=== PATIENT | male | born 1985 | race Caucasian/White ===

== ENCOUNTER 2020-10-17 22:41 | Emergency (ER) | payer BC, SELFPAY ==
[2020-10-17 23:23] VITALS: BP 202/94; PULSE 98; RESP 18; TEMP 37.2; O2SAT 96; BMI 49.3
[2020-10-17 23:59] LABS: COVID-19 Test Negative (Negative)
[2020-10-18] VITALS: BP 202/94; PULSE 98; RESP 18; TEMP 37.2; O2SAT 100; O2SAT 96
--- NOTE | 2020-10-18 00:31 | ED_ITS ---
HPI - URI/Sore Throat General Chief Complaint: Upper Respiratory Symptoms Stated Complaint: sore throat Time Seen by Provider: 10/18/20 00:31 Source: patient Mode of arrival: ambulatory Limitations: no limitations History of Present Illness HPI Narrative: Patient complaining of sore throat since early today painful to swallow no fever or chills no shortness of breath no cough Related Data Previous Rx's Medication Instructions Recorded amoxicillin-pot clavulanate 1 tab PO BID #20 tab 10/18/20 [Augmentin] Allergies Allergy/AdvReac Type Severity Reaction Status Date / Time No Known Allergies Allergy Verified 10/17/20 23:26 Review of Systems Review of Systems: Yes all other systems are reviewed and are negative [facility] Past Medical History Medical History HTN (hypertension) Social History Social History Advance Directives: No Advance Directives Information Provided: No Physical Exam Vital Signs: Vital Signs: Last Vital Signs Temp 98.9 F 10/17/20 23:23 Pulse 98 10/17/20 23:23 Resp 18 10/17/20 23:23 BP 202/94 H 10/17/20 23:23 Pulse Ox 96 10/17/20 23:23 Body Mass Index 49.3 Appearance: Alert. Oriented X3. No acute distress. Eyes: PERRLA, No Nystagmus ENT: Pharynx slight erythema, tonsils normal no exudate, Oral Mucosa moist Neck: Normal inspection. Neck supple. CVS: Normal heart rate and rhythm. Pulses normal. Respiratory: No respiratory distress. Equal air entry bilateral, no wheezing/rales/rhonchi Abdomen: Soft and nontender. Bowel sounds are present, Skin: Skin warm and dry. Normal skin color. Normal skin turgor. Extremities: No lower extremity edema. No calf tenderness Neuro: Oriented X 3. No motor deficit. No sensory deficit.No cerebellar signs , MDM - URI/Sore Throat Differential Diagnosis Differential diagnosis: Likely upper respiratory infection Lab Data Attestation: I reviewed the patient's lab results. Labs: Lab Results 10/17/20 10/18/20 Range/Units 23:35 01:04 COVID-19 (YENY) Negative (Negative) COVID-19 Clin Com See Note S. pyogenes GrpA SAUL Negative (Negative) Discharge Plan Discharge Clinical Impression: Pharyngitis Qualifiers: Pharyngitis/tonsillitis etiology: streptococcus Qualified Code(s): J02.0 - Streptococcal pharyngitis Patient Disposition: Home, Self-Care Instructions: Pharyngitis (ED) Additional Instructions: Drink plenty of fluids. Take antibiotic as prescribed Prescriptions: New amoxicillin-pot clavulanate [Augmentin] 875-125 mg tablet 1 tab PO BID Qty: 20 RF: 0
[2020-10-18 01:16] LABS: Strep A Nucleic Acid Negative (Negative)
[2020-10-18] MEDS: Amoxicillin/Potassium Clav 875 MG TABLET PO (01:32)
== END 2020-10-18 01:32 | disposition home or self-care (01) ==
PROVIDERS: Emergency Medicine; Emergency Provider Internal Medicine
DX: J02.0 Streptococcal pharyngitis (principal); Z20.822 Contact with and (suspected) exposure to COVID-19; Z79.899 Other long term (current) drug therapy
CPT/HCPCS: 36415; 87635; 87651; 99285

== ENCOUNTER 2025-05-06 01:45 | Emergency (ER) | payer OTHER, SELFPAY ==
--- OUTSIDE RECORDS SUMMARY | 2025-05-04 16:55 | XMS_ITS | Encounter Summary ---
Author Organization [facility] Address [address] [place] [address] Care Team Providers Care Senior Stereo Compiler Team Lead Name Role Phone Pcp, No Primary Care Provider Unavailabl e Reason for Referral * Emergency Services (Urgent) - Authorized Specialty Diagnoses / Procedures Referred By Henna miller Referred To Contact Diagnoses Right wrist pain Swelling of right wrist Jane Donohue APRN [address] [place], [place] [id number] Phone: tel: fax: [place] [address] Referral ID Status Reason Start Date Expiration Date V isits Requested Visits Authorized [id number] Authorized Consult 05/05/2025 05/06/2026 1 1 * Orthopedic (Routine) - Authorized Specialty Diagnoses / Procedures Referred By Henna miller Referred To Contact Surgery, Orthopedic Diagnoses Right wrist pain Jane Donohue APRN [address] [place] [address] Phone: tel: fax: Sivakumar Cullen MD [address] [place] [id number] Phone: tel: fax: Referral ID Status Reason Start Date Expiration Date Visits Requested Visits Authorized [id number] Authorized Specialty Services Required 05/05/2025 05/06/2026 1 1 Reason for Visit * Reason Comments Wrist Pain No known injury. Rig ht wrist pain x 1 week. Both parents has a history of Gout. Encounter Details Date Type Department Care Team (Late st Contact Info) Description 05/04/2025 4:55 PM EST Office Visit [facility] [address] [id number] Femi Colbert MD [address] [place] [address] Jane Donohue APRN [address] [place] [address] Right wrist pain (Primary Dx); Swelling of right wrist Social History Tobacco Use Types Packs/Day Years Used Date Smoking Tobacco: Never Assessed Sex and Gender Information Value Date Recorded Sex Assigned at Not on file Legal Sex Male 1:54 PM EDT Gender Identity Not on file Sexual Orientation Not on file documented as of this encounter Last Filed Vital Signs Vital Sign Reading Time Taken Comments Blood Pressure 159/90 05/04/2025 5:23 PM EST Pulse 73 05/04/2025 4:59 PM EST Temperature 36.6 C (97.9 F) 05/04/2025 4:59 PM EST Respiratory Rate - - Oxygen Saturation 98% 05/04/2025 4:59 PM EST Inhaled Oxygen Concentration - - Weight 181 kg (398 lb) 05/04/2025 4:59 PM EST Height - - Body Mass Index - - documented in this encounter Patient Instructions * Patient Instructions* Jane Donohue APRN - 05/05/2025 8:09 AM EST Instructions: - Tylenol 1000mg every 6-8 hours as needed and Motrin 600mg every 6-8 hours for pain control. May take up to 4g of Tylenol and 3200mg of Motrin daily. - Take prednisone as directed in the morning with food. - RICE therapy (rest, ice, compression, elevation). - Begin low purine diet to prevent acute gouty flares. - Follow up with PCP for further management. - If any new or worsening symptoms develop, including chest pain, shortness of breath, fevers, chills, abdominal pain, nausea, or vomiting, go to urgent care or the ED for reevaluation. -Follow up with [facility] documented in this encounter Progress Notes * Jane Donohue APRN - 05/05/2025 8:06 AM EST Assessment & Plan Jered was seen today for wrist pain. Diagnoses and all orders for this visit: Right wrist pain - XR Wrist 3+ views-Right; Future - predniSONE (DELTASONE) 20 MG tablet; Take 2 tablets (40 mg total) by mouth daily. With food. - naproxen (NAPROSYN) 500 MG tablet; Take 1 tablet (500 mg total) by mouth 2 (two) times a day withmeals. Take with meals or food to reduce stomach upset. - Amb Referral to Orthopedic Surgery - Amb Referral to Emergency Medicine Swelling of right wrist - Amb Referral to Emergency Medicine Medical decision making: The diagnosis is right wrist pain based on history, physical exam, and lab/diagnostic testing. Patient with no known history of gout in the past however does have familial history of gout to the wrist. Has had increasing pain over the past 1 week along the joint. Initially along the radial aspect however has transitioned to the ulnar aspect. I did obtain an x-ray in clinic which reveals a possible bone fragment along the distal ulnar aspect which may reflect a displaced styloid process fracturehowever patient cannot recall any recent trauma. Cannot recall an injury in the past. The pt/familywas advised that some diseases present atypically and the pt was given explicit discharge instructio ns. Prescribed naproxen. Prescribed prednisone burst; patient counseled on side effects of this medication, including elevated blood pressure and blood glucose, as well as difficulty sleeping. There is no evidence of cellulitis at this time. Encouraged RICE therapy. Patient educated on low purine diet. Follow up with PCP. Reviewed with the patient/family any signs and symptoms that would warrant immediate medical attention including, but not limited to, fevers, chills, CP, SOB, erythema of the affected area, new/worsening edema of the affected area, warmth of the affected area, numbness, lossof sensation, or inability to move the affected area. Patient/family understand and agree with thisplan. I independently reviewed the 3+ right wrist x-ray which does show a bone fragment along the distal ulna Radiologist impression: There is a bone fragment of the fovea of the distal ulna which may reflect displaced eyelid process fracture of uncertain acuity Addendum 05/05/2025 at 8 AM: I did call and speak with patient. ID verified. Patient verbalized he cannot recall any recent trauma however tenderness is along the distal ulnar aspect. Patient will return to clinic in [place] today for splint and will follow-up with orthopedist. Is advised to continue prednisone and naproxen therapy. Will return to clinic at 4 PM today Addendum 1615 on 05/05/2025: Patient return to clinic in [place] location as patient does have notable ulnar styloid bone fragment noted on x-ray. When patient arrived in clinic of note there is increasing more swelling and difficulty performing range of motion. Swelling does extend to the hand, and right forearm.. There is no obvious signs of open wounds and patient cannot recall any recent scabs. At this time patient has taken 2 doses of prednisone along with naproxen as directed however symptoms are worsening. Given difficulty performing range of motion along with increasing swelling I am concerned for other etiologies including septic joint, cellulitis, compartment syndrome and other medical emergencies. At present I did advise patient to go to the emergency department for further evaluation and management. He did verbalize understanding. He would like to go to [facility] for furtherevaluation and management. No results found for this or any previous visit (from the past 2 hours). Subjective Subjective Patient ID: Jered Jeff is a 39 y.o. male. Jered Jeff is a 39-year-old male presents the urgent care setting for evaluation of his right wrist. Patient reports increased pain over the past 1 week. Has reported along the radial aspect however has gradually transition to the ulnar aspect. He denies any known trauma or injury. He denies any weakness. He reports his parents have a history of gout to the wrist as well. Does report increased red meat consumption. Denies any fevers or chills. Denies any known wounds. Wrist Pain The pain is present in the right wrist. Review of Systems Musculoskeletal: Positive for arthralgias and myalgias. Negative for gait problem, joint swelling, neck pain and neck stiffness. Problem List[1] History reviewed. No pertinent past medical history. History reviewed. No pertinent surgical history. Current Medications[2] Objective Objective Vitals: 05/04/25 1659 05/04/25 1723 BP: (!) 194/102 (!) 159/90 BP Location: Right arm Patient Position: Sitting Cuff Size: Large Pulse: 73 Temp: 97.9 ??F (36.6 ??C) SpO2: 98% Weight: (!) 181 kg (398 lb) Physical Exam Constitutional: General: He is not in acute distress. Appearance: Normal appearance. He is well-developed. He is not ill-appearing. HENT: Head: Normocephalic and atraumatic. Cardiovascular: Pulses: Radial pulses are 2+ on the right side. Pulmonary: Effort: Pulmonary effort is normal. No tachypnea, bradypnea or respiratory distress. Musculoskeletal: Right wrist: Swelling, tenderness and bony tenderness present. Decreased range of motion. Comments: Normal opposition of all fingers. There is mild discomfort along palpation of the ulnar aspect of right wrist. There is some localized swelling. No erythema. 2+ right radial is intact. Milddiscomfort with flexion and extension of the right wrist, able to perform range of motion Skin: General: Skin is warm. Capillary Refill: Capillary refill takes less than 2 seconds. Coloration: Skin is not jaundiced or pale. Findings: No lesion, rash or wound. Comments: Mild localized swelling noted to the right wrist Neurological: General: No focal deficit present. Mental Status: He is alert and oriented to person, place, and time. Psychiatric: Attention and Perception: Attention normal. Mood and Affect: Mood normal. Speech: Speech normal. Behavior: Behavior is cooperative. Cognition and Memory: Cognition normal. [1] There is no problem list on file for this patient. [2] Current Outpatient Medications: amLODIPine (NORVASC) 10 MG tablet, Take 10 mg by mouth., Disp: , Rfl: chlorthalidone (HYGROTON) 25 MG tablet, Take 25 mg by mouth., Disp: , Rfl: hydrALAZINE (APRESOLINE) 50 MG tablet, Take 50 mg by mouth., Disp: , Rfl: lisinopril (PRINIVIL,ZeSTRIL) 40 MG tablet, Take 40 mg by mouth., Disp: , Rfl: naproxen (NAPROSYN) 500 MG tablet, Take 1 tablet (500 mg total) by mouth 2 (two) times a day with meals. Take with meals or food to reduce stomach upset., Disp: 10 tablet, Rfl: 0 predniSONE (DELTASONE) 20 MG tablet, Take 2 tablets (40 mg total) by mouth daily. With food., Disp:10 tablet, Rfl: 0 documented in this encounter Miscellaneous Notes * Addendum Note - Jane Donohue APRN - 05/05/2025 4:22 PM ESTAddended by: JANE DONOHUE on: 05/05/2025 04:22 PM Modules accepted: Orders documented in this encounter Plan of Treatment Scheduled Referrals Name Type Priority Associated Diagnoses Order Schedule Amb Referral to Orthopedic Surgery Outpatient Referral Routine Right wrist pain Ordered: 05/05/2025 Amb Referral to Emergency Medicine Outpatient Referral Routine Right wrist pain Swelling Of Right Wrist Ordered: 05/05/2025 documented as of this encounter Results * XR Wrist 3+ views-Right (05/05/2025 7:18 AM EST) Anatomical Region Laterality Modality Wrist Right Computed Radiogr aphy 05/05/2025 7:18 AM EST Impressions 05/05/2025 7:20 AM EST THERE IS A BONE FRAGMENT of THE FOVEA OF THE DISTAL ULNA WHICH MAY REFLECT DISPLACED STYLOID PROCESS FRACTURE OF UNCERTAIN ACUITY. A Significant finding has been communicated to Radiology Patient Care for provider notification via the Ep[employer] Actionable Findings Application on 05/05/2025 7:19 AM, Message ID [id number]. Narrative 05/05/2025 7:20 AM EST EXAM: XR WRIST 3+ VIEWS-RIGHT on 05/04/2025 5:16 PM CLINICAL HISTORY: Atraumatic pain and swelling x 1 week. Tenderness to the ulnar aspect. COMPARISONS: None VIEWS: 4, Frontal, lateral, oblique, and scaphoid deviation views of the right wrist LIMITATIONS: None QUALITY: Diagnostic FINDINGS: BONE DENSITY: Normal. BONES: There is a bone fragment the fovea of the distal ulna. 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 ALIGNMENT: There is no dislocation. SOFT TISSUES: Unremarkable. OTHER FINDINGS: None. Procedure Note Александр Acevedo MD - 05/05/2025 EXAM: XR WRIST 3+ VIEWS-RIGHT on 05/04/2025 5:16 PM CLINICAL HISTORY: Atraumatic pain and swelling x 1 week. Tenderness to the ulnar aspect. COMPARISONS: None VIEWS: 4, Frontal, lateral, oblique, and scaphoid deviation views of theright wrist LIMITATIONS: None QUALITY: Diagnostic FINDINGS: BONE DENSITY: Normal. BONES: There is a bone fragment the fovea of the distal ulna. 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 ALIGNMENT: There is no dislocation. SOFT TISSUES: Unremarkable. OTHER FINDINGS: None. IMPRESSION: THERE IS A BONE FRAGMENT of THE FOVEA OF THE DISTAL ULNA WHICH MAY REFLECTDISPLACED STYLOID PROCESS FRACTURE OF UNCERTAIN ACUITY. A Significant finding has been communicated to Radiology Patient Care forprovider notification via the Ep[employer] Actionable FindingsApplication on 05/05/2025 7:19 AM, Message ID [id number]. Jane [facility]ER[facility]LES Final Result documented in this encounter Visit Diagnoses Diagnosis Right wrist pain- Primary Pain in joint, forearm Swelling of right wrist Right wrist pain Pain in joint, forearm documented in this encounter Care Teams Senior Stereo Compiler Team Lead Relationship Specialty Start Date End Date Pcp, No PCP - General General Medicine 05/04/25 documented as of this encounter
--- OUTSIDE RECORDS SUMMARY | 2025-05-04 17:16 | XMS_ITS | Encounter Summary ---
Author Organization [facility] Address [address] [place] [address] Care Team Providers Care Press Writer Name Role Phone Pcp, No Primary Care Provider Unavailabl e Encounter Details Date Type Department Care Team (Latest Contact Info) Description 05/04/2025 5:16 PM EST Hospital Encounter [facility] [address] [place] [address] Right wrist pain Social History Tobacco Use Types Packs/Day Years Used Date Smoking Tobacco: Never Assessed Sex and Gender Information Value Date Recorded Sex Assigned at Not on file Legal Sex Male 1:54 PM EDT Gender Identity Not on file Sexual Orientation Not on file documented as of this encounter Plan of Treatment Not on file documented as of this encounter Procedures Procedure Name Priority Date/Time Associated Diagnosis Comments XR WRIST 3+ VIEWS-RIGHT STAT 05/05/2025 7:18 AM EST Right wrist pain documented in this encounter Results * XR Wrist 3+ views-Right (05/05/2025 7:18 AM EST) Anatomical Region Laterality Modality Wrist Right Computed Radiogr aphy 05/05/2025 7:18 AM EST Impressions 05/05/2025 7:20 AM EST THERE IS A BONE FRAGMENT of THE FOVEA OF THE DISTAL ULNA WHICH MAY REFLECT DISPLACED STYLOID PROCESS FRACTURE OF UNCERTAIN ACUITY. A Significant finding has been communicated to Radiology Orthodontic Technician Assistant for provider notification via the [email or web address] Findings Application on 05/05/2025 7:19 AM, Message ID [id number]. Narrative 05/05/2025 7:20 AM EST EXAM: XR [...] Significant finding has been communicated to Radiology Orthodontic Technician Assistant forprovider notification via the [employer] Actionable FindingsApplication on 05/05/2025 7:19 AM, Message ID [id number]. Jane [facility]VIS [facility]ER[facility] Final Result documented in this encounter Visit Diagnoses Diagnosis Right wrist pain Pain in joint, forearm documented in this encounter Care Teams Press Writer Relationship Specialty Start Date End Date Pcp, No PCP - General General Medicine 05/04/25 documented as of this encounter
--- NOTE | ~2025-05-06 | XR_ITS ---
CLINICAL HISTORY: broken wrist per urgent care, pain, no injury 4 views right wrist Comparison: None provided Findings: There is no acute fracture. There appears to be an old healed fracture of the 5th metacarpal. There is an incidental small accessory ossicle in the medial wrist. Joint spaces and joint alignment are normal. Impression: No acute findings. This document has been electronically signed by: Oni Soto MD on 05/06/2025 02:37:35
[2025-05-06 01:54] VITALS: BP 173/94; PULSE 90; RESP 20; TEMP 36.7; O2SAT 95; BMI 52.5
--- NOTE | 2025-05-06 03:04 | ED.EXTPRO ---
HPI - Extremity Problem General Chief complaint: Extremity Injury, Upper Stated complaint: swollen hand Time Seen by Provider: 05/06/25 02:51 Source: patient Mode of arrival: ambulatory Limitations: no limitations History of Present Illness ED Provider: Dr. Vanessa Heart HPI Narrative: Patient comes to the emergency room were now complaining of right wrist pain that started about a week ago. Patient states that he has been treated for gout with naproxen and with prednisone. Patient states that he is still having wrist pain. Patient denies any trauma, denies any erythema, no fever chills, no significant swelling in the actual joint, only on the dorsum of the hand. Patient denies any trauma. Patient states that he was seen at urgent care a few days ago and was told that he may have a fracture. Patient states that he has had joint problems with his knee before, happened 2 months ago. Patient states that it seems to be exacerbated by eating red meats Related Data Previous Rx's ?Medication ?Instructions ?Recorded amoxicillin 875 mg-potassium 1 tab PO BID #20 tabs 10/18/20 clavulanate 125 mg tablet (Augmentin) colchicine 0.6 mg tablet 0.6 mg PO BID #7 tabs 05/06/25 oxycodone 5 mg tablet 5 mg PO BID PRN pain #8 tabs 05/06/25 Allergies Allergy/AdvReac Type Severity Reaction Status Date / Time No Known Allergies Allergy Verified 05/06/25 01:57 Review of Systems Review of Systems: Constitutional : No Weight loss, No Fever, No Chills, No Night Sweats, No Fatigue, No Malaise ENT/Mouth : No Hearing loss, No Ear Pain, No Nasal Congestion, No Sinus Pain, No Hoarseness, No sore throat, No Rhinorrhea, No Swallowing Difficulty Eyes: No Eye Pain, No Swelling, No Redness, No Foreign Body, No Discharge, No Vision Changes Cardiovascular : No Chest Pain, No SOB, No Dyspnea on Exertion, No Orthopnea, No Edema, No Palpitations Respiratory : No Cough, No Sputum, No Wheezing, No Smoke Exposure, No Dyspnea Gastrointestinal : No Nausea, No Vomiting, No Diarrhea, No Constipation, No abdominal Pain, No Hematochezia, No Melena Genitourinary : no irregular bleeding, No Dysuria, No Urinary Frequency, No Hematuria, No Urinary Incontinence, No Urgency, No Flank Pain, No Urinary Flow Changes, No Hesitancy Musculoskeletal : Complaining of right wrist pain for over a week with no trauma, No Myalgias, No Joint Swelling Skin : No Skin Lesions, No rash Neuro : No Weakness, No Numbness, No Paresthesias, No Loss of Consciousness, No Dizziness, No Headache Psych : No Anxiety/Panic, No Depression, No SI/HI/AH/VH, No Social Issues, Heme/Lymph: No Bruising, No Bleeding,No Lymphadenopathy Endocrine : No Polyuria, No Polydipsia, No Temperature Intolerance [facility] Past Medical History Medical History HTN (hypertension) Social History Social History Alcohol intake: never Physical Exam Exam: Exam: Appearance: Alert. Oriented X3. No acute distress. Eyes: Pupils equal, round and reactive to light. ENT: Pharynx normal. Neck: Normal inspection. Neck supple. No lymph nodes noted. No crepitus CVS: Normal heart rate and rhythm. Pulses normal. Normal S1 and S2 Respiratory: No respiratory distress. Breath sounds normal. No Wheezing. No rales Abdomen: Soft and nontender. No rigidity. No distention. Skin: Skin warm and dry. Normal skin color. Normal skin turgor. Extremities: No lower extremity edema. Patient's right wrist does not seem to be swollen, there is no erythema, no obvious effusion. The dorsum of the hands seems a bit swollen. However, patient does not have any pain over the dorsum of the hand. Patient states that it is sober a very specific spot on his wrist. Neuro: Oriented X 3. No motor deficit. No sensory deficit. Moving all extremities. No slurred speech. CN 2 through 12 grossly intact Psych: calm, cooperative, normal affect Vital Signs: Vital Signs: Last Vital Signs Temp 98.0 F 05/06/25 01:54 Pulse 90 05/06/25 01:54 Resp 20 05/06/25 01:54 BP 173/94 H 05/06/25 01:54 Pulse Ox 95 05/06/25 01:54 O2 Del Method Room Air 05/06/25 01:54 BMI result Body Mass Index 52.5 Medical Decision Making Medical Decision Making MDM Narrative: My interpretation of x-ray: No acute fracture, old healed fracture of the 5th metacarpal. Patient does not have any pain over the 5th metacarpal at all. I discussed with the patient to stop taking naproxen, continue taking prednisone, patient's medications were switched to colchicine and oxycodone PRN severe pain I discussed with the patient that we will give him a referral for Rheumatology, patient states that his job is very physical and is concerned that he might be having arthritis, which tends to run in his family Independent Interpretation I performed an independent interpretation of an: Plain X-Ray Radiology Impression Discussion of test interpretation with radiology: I have reviewed the radiologist's reading. Radiologist Impression: There is no acute fracture. There appears to be an old healed fracture of the 5th metacarpal. There is an incidental small accessory ossicle in the medial wrist. Joint spaces and joint alignment are normal. Impression: No acute findings. Discharge Plan Discharge Clinical Impression: Acute wrist pain Patient Disposition: Home, Self-Care Instructions: Arthralgia (ED) Additional Instructions: Please follow-up with your primary care physician tomorrow. If you have any worsening or new symptoms, please return to the emergency room or call 911 Prescriptions: New oxycodone 5 mg tablet 5 mg PO BID PRN (Reason: pain) Qty: 8 0RF Rx Instructions: Partial Fill upon patient request. colchicine 0.6 mg tablet 0.6 mg PO BID Qty: 7 0RF No Action amoxicillin-pot clavulanate [Augmentin] 875-125 mg tablet 1 tab PO BID Qty: 20 0RF Referrals: Kae Coulter MD [Physician, Rheumatology] Stand Alone Forms: Work/School Release Print Language: Frisian
[2025-05-06] MEDS: oxyCODONE HCl Immed Release 5 MG TABLET PO (03:11)
--- OUTSIDE RECORDS SUMMARY | 2025-05-06 03:12 | XMS_ITS ---
Author Name [facility] Organization Unknown History of Medication Use Medication Directions Dispensed Refills Start Date End Date Stat amLODIPine (NORVASC) 10 mg tablet Take 1 tablet (10 mg total) by mouth in the morning. 05/09/2022 active chlorthalidone (HYGROTON) 25 mg tablet Take 0.5 tablets (12.5 mg total) by mouth in the morning. 05/09/2022 active lisinopriL (PRINIVIL) 40 mg tablet Take 1 tablet (40 mg total) by mouth in the morning. 05/09/2022 active lisinopriL (PRINIVIL) 40 mg tablet TAKE 1 TABLET BY MOUTH EVERY DAY 01/13/2021 05/05/2022 active amLODIPine (NORVASC) 10 mg tablet TAKE 1 TABLET BY MOUTH EVERY DAY 01/11/2021 05/05/2022 active chlorthalidone (HYGROTON) 25 mg tablet TAKE 1/2 TABLET BY MOUTH EVERY DAY 01/11/2021 05/05/2022 aborted famotidine (PEPCID) tablet TAKE 1 TABLET (20 MG TOTAL) BY MOUTH 2 (TWO) TIMES A DAY NEEDED FOR HEARTBURN. (NOT COVERED) 02/05/2020 active Problems Problem Status Onset Date Problem Type Date of Resoluti on Source NAV (obstructive sleep apnea) active 2019-12-20 [facility]Act [facility] Transaminitis active 2018-05-24 ProblemAct [facility] Essential hypertension active 2018-05-10 ProblemAct [facility] Morbid obesity with BMI of 45.0-49.9, adult active 2018-05-10 ProblemAct [facility] Encounters Encounter Type Encounter Reason Primary Diagnosis Location Date Ambulatory Pain in right wrist Pain in right wrist [facility] 05/04/2025 Ambulatory Wrist Pain Wrist Pain [facility] 05/04/2025 Ambulatory [facility] [place] Care Team Organization Name Specialty Phone Email Start Date End Da te [facility] NO PCP Primary Care 05/05/2025 [facility] 05/04/2025 [facility] 05/04/2025 [facility] Primary Care 05/04/2025 [facility] Primary Care 05/04/2025
--- OUTSIDE RECORDS SUMMARY | 2025-05-06 03:12 | XMS_ITS | Clinical Summary ---
Author Organization [address] [facility] Address [address] [place] [address] Phone Care Team Providers Care Deaf Interpreter Name Role Phone Sandra Roy Primary Care Provider + Allergies No known active allergies Medications ergocalciferol (VITAMIN D-2) 1,250 mcg (50,000 unit) capsuleIndicatio ns:Vitamin D deficiency Take 1 capsule (50,000 Units total) by mouth 1 (one) time per week. 12 capsule 1 4 Active Additional Information Patient not taking.Reported on 05/04/2025 chlorthalidone (HYGROTON) 25 mg tabletIndication s:Primary hypertension Take 1 tablet (25 mg total) by mouth 1 (one) time each day. 90 tablet 1 5 Active amLODIPine (NORVASC) 10 mg tabletIndication s:Primary hypertension Take 1 tablet (10 mg total) by mouth 1 (one) time each day. 90 tablet 1 5 Active lisinopril (PRINIVIL,ZESTRI L) 40 mg tabletIndication s:Primary hypertension Take 1 tablet (40 mg total) by mouth 1 (one) time each day. 90 tablet 1 5 Active hydrALAZINE (APRESOLINE) 25 mg tabletIndication s:Primary hypertension Take 1 tablet (25 mg total) by mouth 3 (three) times a day. 270 tablet 1 5 Active Active Problems Problem Noted Date Diagnosed Date NAV (obstructive sleep apnea) 12/20/2019 Transaminitis 05/24/2018 Hypertension Overview (04/18/2024): DX:Hypertension Morbid obesity with BMI of 5 0.0-59.9, adult [place] [place] [facility] V28) Vitamin D deficiency Prediabetes Encounters Date Type Department Care Team Description 04/07/2025 2:30 PM EST Nutrition Bariatric Surgery - [address] [place] [address] Class 3 severe obesity with serious comorbidity and body mass index (BMI) of 50.0 to 59.9 in adult, unspecified obesity type ([facility] [place]24, [facility] V28) (Primary Dx) from Last 3 Months Immunizations Immunization Administration Dates Next Due Pfizer SARS-CoV-2 COVID-19, mRNA, LNP-S, preservative free 12/26/2020 Surgical History Surgery Date Site/Laterality Comments TIBIA FRACTURE SURGERY Left 2012 LEFT TIB/FIB FX S/P ORIF AT [facility] Medical History Medical History Date Comments Hypertension DX:Hypertension Ankle dislocation DX:Ankle dislo cation Morbid obesity with BMI of 5 0.0-59.9, adult ([facility] [place]24, [facility] V28) Vitamin D deficiency Prediabetes Social History Tobacco Use Types Packs/Day Years Used Date Smoking Tobacco: Never Smokeless Tobacco: Never Tobacco Cessation:Counseling Given: Not Answered Alcohol Use Standard Drinks/Week Comments Not Currently 0 (1 standard drink = 0.6 oz pur e alcohol) Housing Instability Answer Date Recorde d Are you worried that in the next 2 months you may not have stable housing? No 04/18/2024 Food Access & Nutrition Answer Date Rec orded Do you have access to a vari ety of food including fruits and vegetables? Yes 04/18/2024 Access to Healthcare Answer Date Record ed Within the last 3 months, lynsey guadalupe many times did you visit the emergency department for your medical care? 0 04/18/2024 Health Literacy Answer Date Recorded How often do you need to hav e someone help you when you read instructions, pamphlets, or other written material from your doctor or pharmacy? Never 04/18/2024 Caregiver: How often do you need to have someone help you when you read instructions, pamphlets, or other written material from your doctor or pharmacy? Not on file 04/18/2024 Financial Risk Answer Date Recorded How hard is it for you to pa y for the very basics like food, housing, medical care, and air conditioning / heating? Not very hard 04/18/2024 Transportation Answer Date Recorded Has the lack of transportati on kept you from meetings, work, or from getting things needed for daily living? No Has the lack of transportati on kept you from medical appointments or from getting medications? No 04/18/2024 Social Isolation Answer Date Recorded How often do you feel lonely or isolated from th ose around you? Never 04/18/2024 Food Risk Answer Date Recorded Within the past 12 months we worried whether our food would run out before we got money to buy more. Never true 04/18/2024 Within the past 12 months th e food we bought just didn't last and we didn't have money to get more. Never true 04/18/2024 Dependent Care Answer Date Recorded Do you need help finding or paying for care for your loved ones. For example, children's book author or elderly care for an older adult? No 04/18/2024 Education Answer Date Recorded Do you think completing more education or training, like finishing a GED, going to college, or learning a trade, would be helpful for you? No 04/18/2024 Employment and Income Answer Date Recor ded During the last four weeks, have you been actively looking for work? No 04/18/2024 Living Situation Answer Date Recorded What is your living situation? 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 Not on melina e Not on file Obstetrics History Last Filed Vital Signs Vital Sign Reading Time Taken Comments Blood Pressure 167/85 05/04/2025 4:00 PM EST Pulse 67 05/04/2025 4:00 PM EST Temperature 36.4 C (97.6 F) 05/04/2025 4:00 PM EST Respiratory Rate 20 05/04/2025 4:00 PM EST Oxygen Saturation 95% 05/04/2025 4:00 PM EST Inhaled Oxygen Concentration - - Weight 182 kg (401 lb) 04/07/2025 2:29 PM EST Height 185.4 cm (6' 1 ) 01/02/2025 2:56 PM EDT Body Mass Index 52.91 01/02/2025 2:56 PM EDT Plan of Treatment Upcoming Encounters Date Type Department Care Team (Late st Contact Info) Description 05/15/2025 11:00 AM EST Office Visit Internal Medicine - [place] [facility] [address] [place] [phone] Sandra Roy PA [address] [place] [address] 07/01/2025 1:30 PM EST Office Visit Bariatric Surgery - [place] [facility] [address] [place] [address] Ravi Woods MD [address] [place] [address] 07/09/2025 3:00 PM EST Nutrition Bariatric Surgery - [place] [facility] [address] [place] [address] Mague Cast, DICK [address] [address] Health Maintenance Due Date Last Done Comments Hepatitis B Vaccines (1 of 3 - 19+ 3-dose series) 2004 HPV Vaccines (1 - 3-dose SCD M series) 2012 HIV Screening 05/07/2022 DTaP,Tdap,and Td Vaccines (2 - Td or Tdap) 05/10/2022 05/10/2012 COVID-19 Vaccine (2 - 2024-2 6 season) 2025 12/26/2020 Influenza Vaccine (#1) 2025 05/10/2018 Social Influencers of Health Screening 04/18/2025 04/18/2024 Hypertension/CHF/CAD Annual BMP Blood Test 04/19/2025 04/19/2024, 03/25/2022, 03/25/2022 Cholesterol Screening (Lipid Panel) 04/19/2029 04/19/2024 RSV Immunization Adult Patients (1 - 1-dose 75+ series) 2060 Depression Screening Completed 09/26/2024 Hepatitis C Screening Completed 02/07/2025 HIB Vaccines Aged Out No longer eligi ble based on patient's age to complete this topic Hepatitis A Vaccines Aged Out No long er eligible based on patient's age to complete this topic IPV Vaccines Aged Out No longer eligi ble based on patient's age to complete this topic MMR Vaccines Aged Out No longer eligi ble based on patient's age to complete this topic Meningococcal ACWY Vaccine Aged Out N o longer eligible based on patient's age to complete this topic Meningococcal B Vaccine Aged Out No l onger eligible based on patient's age to complete this topic Pneumococcal Vaccine: Pediatrics (0 to 5 Years) and At-Risk Patients (6 to 49 Years) Aged Out No longer eligible b ased on patient's age to complete this topic RSV Immunization Patients Under 20 months Aged Out No longer eligible b ased on patient's age to complete this topic Varicella Vaccines Aged Out No longer eligible based on patient's age to complete this topic Procedures Procedure Name Priority Date/Time Associated Diagnosis Comments URINALYSIS WITH REFLEX MICROSCOPIC Routine 02/07/2025 7:49 AM EDT Other proteinuria PROTEIN AND CREATININE WITH RATIO, URINE Routine 02/07/2025 7:49 AM EDT Other proteinuria URINALYSIS WITH REFLEX MICROSCOPIC Routine 02/07/2025 7:49 AM EDT Other proteinuria C4 COMPLEMENT Routine 02/07/2025 7:49 AM EDT Other proteinuria C3 COMPLEMENT Routine 02/07/2025 7:49 AM EDT Other proteinuria HEPATITIS B SURFACE ANTIGEN WITH CONFIRMATION Routine 02/07/2025 7:49 AM EDT Proteinuria HEPATITIS C ANTIBODY Routine 02/07/2025 7:49 AM EDT Proteinuria COMPREHENSIVE METABOLIC PANEL Routine 04/19/2024 7:41 AM EST Primary hypertension LIPID PANEL WITH REFLEX TO DIRECT LDL Routine 04/19/2024 7:41 AM EST Health care maintenance from Last 3 Months or Most Recently Relevant to Health Maintenance Results * Hepatitis C antibody (02/07/2025 7:49 AM EDT) [facility] Hepatitis C Antibody Negative Negative LAB CHEMISTRY METHOD 02/07/2025 11:58 AM EDT [facility] Blood Venous blood specimen / Unknown Venipuncture / Unknown 02/07/2025 7:49 AM EDT 02/07/2025 7:49 AM EDT us Terrance Tejada MD LAB BLOOD ORDERABLES Final Res ult [facility] [address] [place] [address], [place] [phone] * Urinalysis with reflex microscopic (02/07/2025 7:49 AM EDT) [facility] Specific [place] Urine 1.020 1.003 - 1.030 LAB URINALYSIS - AUTOMATED METHOD 02/07/2025 10:17 AM T [facility] pH, Urine 6.0 5.0 - 8.0 pH LAB URINALYSIS - AUTOMATED METHOD 02/07/2025 10:17 AM T [facility] Leukocytes, Urine Negative Negative LAB URINALYSIS - AUTOMATED METHOD 02/07/2025 10:17 AM T [facility] Nitrite, Urine Negative Negative LAB URINALYSIS - AUTOMATED METHOD 02/07/2025 10:17 AM [facility] Protein, Urine Negative <=Trace mg/dL LAB URINALYSIS - AUTOMATED METHOD 02/07/2025 10:17 AM [facility] Glucose, Urine Negative Negative mg/dL LAB URINALYSIS - AUTOMATED METHOD 02/07/2025 10:17 AM EDT [facility] Ketones, Urine Negative Negative mg/dL LAB URINALYSIS - AUTOMATED METHOD 02/07/2025 10:17 AM EDT [facility] Urobilinogen, Urine 1.0 0.2 - 1.0 mg/dL LAB URINALYSIS - AUTOMATED METHOD 02/07/2025 10:17 AM EDT [facility] Bilirubin, Urine Negative Negative LAB URINALYSIS - AUTOMATED METHOD 02/07/2025 10:17 AM EDT [facility] Blood, Urine Negative Negative LAB URINALYSIS - AUTOMATED METHOD 02/07/2025 10:17 AM T [facility] Urine Urine specimen obtained by clean catch procedure / Unknown Non-blood Collection / Unknown 02/07/2025 7:49 AM EDT 02/07/2025 7:49 AM EDT us Terrance Tejada MD LAB URINE ORDERABLES Final Res ult [facility] [address] [place] [address], * Hepatitis B surface antigen with reflex to confirmation (02/07/2025 7:49 AM EDT) Hepatitis B Surface Ag Negative Negative LAB CHEMISTRY METHOD 02/07/2025 11:29 AM EDT [facility] Blood Venous blood specimen / Unknown Venipuncture / Unknown 02/07/2025 7:49 AM EDT 02/07/2025 7:49 AM EDT Narrative [facility] - 02/07/2025 11:29 AM EDT Over the counter supplements containing high doses of biotin may interfere with this assay. If interference is suspected, patients shoud be retested after refraining from biotin supplements for 72 hours. us Terrance Tejada MD LAB BLOOD ORDERABLES Final Res ult Performing Organization Address City/[facility]/ZIP Co de Phone Number [facility] [address] [place] [address], [place] [phone] * Protein and creatinine with ratio, urine (02/07/2025 7:49 AM EDT) Protein, Urine 12 mg/dL LAB CHEMISTRY METHOD 02/07/2025 11:05 AM EDT [facility] Prot/Creat, Ur 0.13 <=0.20 mg/mg creat LAB CHEMISTRY METHOD 02/07/2025 11:05 AM EDT [facility] Creatinine, Urine 90.0 mg/dL LAB CHEMISTRY METHOD 02/07/2025 11:05 AM EDT [facility] Urine Urine specimen obtained by clean catch procedure / Unknown Non-blood Collection / Unknown 02/07/2025 7:49 AM EDT 02/07/2025 7:49 AM EDT Terrance Tejada MD LAB URINE ORDERABLES Final Res ult Performing Organization Address [facility]/ZIP Co de Phone Number [facility] [address] [place] [address], [place] [phone] * C3 complement (02/07/2025 7:49 AM EDT) C3 Complement 137 88 - 201 mg/dL LAB CHEMISTRY METHOD 02/07/2025 10:36 AM EDT [facility] Blood Venous blood specimen / Unknown Venipuncture / Unknown 02/07/2025 7:49 AM EDT 02/07/2025 7:49 AM EDT Terrance Tejada MD LAB BLOOD ORDERABLES Final Res ult [facility] [address] [place] [address], [place] [phone] * C4 complement (02/07/2025 7:49 AM EDT) C4 Complement 23 16 - 47 mg/dL LAB CHEMISTRY METHOD 02/07/2025 10:36 AM EDT [facility] Blood Venous blood specimen / Unknown Venipuncture / Unknown 02/07/2025 7:49 AM EDT 02/07/2025 7:49 AM EDT Terrance Tejada MD LAB BLOOD ORDERABLES Final Res ult [facility] [address] [place] [address], [place] [phone] * Lipid panel with reflex to direct LDL (04/19/2024 7:41 AM EST) Cholesterol 161 0 - 200 mg/dL LAB CHEMISTRY METHOD 04/19/2024 10:36 AM [facility] Triglycerides 87 0 - 150 mg/dL LAB CHEMISTRY METHOD 04/19/2024 10:36 AM EST [facility] HDL 54 >=40 mg/dL LAB CHEMISTRY METHOD 04/19/2024 10:36 AM [facility] LDL Calculated 90 0 - 100 mg/dL LAB CHEMISTRY METHOD 04/19/2024 10:36 AM [facility] VLDL Cholesterol Elijah 17.4 mg/dL LAB CHEMISTRY METHOD 04/19/2024 10:36 AM EST [facility] Non HDL Chol. (LDL+VLDL) 107 <145 mg/dL LAB CHEMISTRY METHOD 04/19/2024 10:36 AM [facility] Chol/HDL Ratio 3.0 0.0 - 4.4 LAB CHEMISTRY METHOD 04/19/2024 10:36 AM [facility] Blood Venous blood specimen / Unknown Venipuncture / Unknown 04/19/2024 7:41 AM EST 04/19/2024 7:41 AM EST Sandra WEBSTER LAB BLOOD ORDERABLES Fin al Result [facility] [address] [place] [address], [place] [phone] * (ABNORMAL) Comprehensive metabolic panel (04/19/2024 7:41 AM EST) Sodium 141 133 - 145 mmol/L LAB CHEMISTRY METHOD 04/19/2024 11:01 AM [facility] Potassium 3.7 3.5 - 5.5 mmol/L LAB CHEMISTRY METHOD 04/19/2024 11:01 AM [facility] Chloride 108 96 - 110 mmol/L LAB CHEMISTRY METHOD 04/19/2024 11:01 AM [facility] CO2 25 21 - 32 mmol/L LAB CHEMISTRY METHOD 04/19/2024 11:01 AM [facility] Anion Gap 8 3 - 11 LAB CHEMISTRY METHOD 04/19/2024 11:01 AM [facility] Glucose 106(H) 70 - 100 mg/dL LAB CHEMISTRY METHOD 04/19/2024 11:01 AM [facility] BUN 24 5 - 25 mg/dL LAB CHEMISTRY METHOD 04/19/2024 11:01 AM [facility] Creatinine 0.87 0.70 - 1.30 mg/dL LAB CHEMISTRY METHOD 04/19/2024 11:01 AM [facility] eGFR 113 >=60 mL/min/1. 73m2 LAB CHEMISTRY METHOD 04/19/2024 11:01 AM [facility] Comment:Calculation based on the Chronic Kidney Disease Epidemiology Collaboration (CKD-EPI) equation refit without adjustment for race. BUN/Creatinine Ratio 27.6 LAB CHEMISTRY METHOD 04/19/2024 11:01 AM [facility] Calcium 9.7 8.5 - 10.5 mg/dL LAB CHEMISTRY METHOD 04/19/2024 11:01 AM [facility] AST (SGOT) 30 10 - 42 unit/L LAB CHEMISTRY METHOD 04/19/2024 11:01 AM [facility] ALT (SGPT) 61(H) 10 - 60 unit/L LAB CHEMISTRY METHOD 04/19/2024 11:01 AM [facility] Alkaline Phosphatase 144(H) 42 - 121 unit/L LAB CHEMISTRY METHOD 04/19/2024 11:01 AM [facility] Total Protein 7.7 6.0 - 8.0 g/dL LAB CHEMISTRY METHOD 04/19/2024 11:01 AM [facility] Albumin 4.2 3.2 - 5.0 g/dL LAB CHEMISTRY METHOD 04/19/2024 11:01 AM [facility] Total Bilirubin 0.8 0.0 - 1.4 mg/dL LAB CHEMISTRY METHOD 04/19/2024 11:01 AM [facility] Blood Venous blood specimen / Unknown Venipuncture / Unknown 04/19/2024 7:41 AM EST 04/19/2024 7:41 AM EST Sandra WEBSTER LAB BLOOD ORDERABLES Fin al Result [facility] [address] [place] [address], from Last 3 Months or Most Recently Relevant to Health Maintenance Insurance [facility] Care Teams Deaf Interpreter Relationship Specialty Start Date End Date Sandra Roy PA [address] [place] [address] PCP - General 01/26/24
--- OUTSIDE RECORDS SUMMARY | 2025-05-06 03:12 | XMS_ITS | Clinical Summary ---
Author Organization [facility] Address [address] [place] [address] Care Team Providers Care Metal Dresser Name Role Phone Unavailable Primary Care Provider Unavailabl e Allergies No known active allergies Medications Medication Sig Dispensed Refills Start Date End Date Status lisinopril-hydrochlor othiazide (PRINZIDE,ZESTORETIC) tablet 20-25 mg Take 1 tablet by mouth daily. 0 05/05/2015 Active promethazine (PHENERGAN) tablet 25 mg Take 1 tablet (25 mg total) by mouth every 6 (six) hours as needed for nausea. 30 tablet 0 06/02/2015 Active Active Problems No known active problems Social History Tobacco Use Types Packs/Day Years Used Date Smoking Tobacco: Never Alcohol Use Standard Drinks/Week Comments No 0 (1 standard drink = 0.6 oz pur e alcohol) Sex and Gender Information Value Date Recorded Sex Assigned at Male 03/25/2022 4:42 AM EDT Gender Identity Not on file Sexual Orientation Not on file Job Start Date Occupation Industry Not on file Not on file Not on file Last Filed Vital Signs Vital Sign Reading Time Taken Comments Blood Pressure 174/106 03/25/2022 3:09 AM EDT gale n Pulse 72 03/25/2022 3:09 AM EDT Temperature 36.7 C (98 F) 03/25/2022 3:09 AM EDT Respiratory Rate 20 03/25/2022 3:09 AM EDT Oxygen Saturation 100% 03/25/2022 3:09 AM EDT Inhaled Oxygen Concentration - - Weight 134.3 kg (296 lb) 05/15/2015 12:49 PM EST Height 185.4 cm (6' 1 ) 05/15/2015 12:49 PM EST Body Mass Index 39.05 05/15/2015 12:49 PM EST Plan of Treatment Health Maintenance Due Date Last Done Comments Hepatitis B Vaccines (1 of 3 - 3-dose series) 1985 Hepatitis C Screening 1985 Depression Screening 1997 Preventative Health Evaluation 2003 DTap / Tdap / Td (2 - Td or Tdap) 05/10/2022 012 COVID-19 Vaccine (2 - 2024- 6 season) 2025 12/26/2020 Influenza Vaccine (#1) 2025 05/10/2018 Pneumococcal Vaccine Aged Out No long er eligible based on patient's age to complete this topic RSV Ped < 20 months Aged Out No longe r eligible based on patient's age to complete this topic
--- OUTSIDE RECORDS SUMMARY | 2025-05-06 03:12 | XMS_ITS | Clinical Summary ---
Author Organization [facility] Address [address] [place] [address] Care Team Providers Care County Administrator Name Role Phone Pcp, No Primary Care Provider Unavailabl e Allergies No known active allergies Medications lisinopril (PRINIVIL,ZeSTR IL) 40 MG tablet Take 40 mg by mouth. 02/14/2025 Active hydrALAZINE (APRESOLINE) 50 MG tablet Take 50 mg by mouth. 02/28/2025 Active chlorthalidone (HYGROTON) 25 MG tablet Take 25 mg by mouth. 02/14/2025 Active amLODIPine (NORVASC) 10 MG tablet Take 10 mg by mouth. 02/14/2025 Active predniSONE (DELTASONE) 20 MG tabletIndicatio ns:Right wrist pain Take 2 tablets (40 mg total) by mouth daily. With food. 10 tablet 05/04/2025 5 Active naproxen (NAPROSYN) 500 MG tabletIndicatio ns:Right wrist pain Take 1 tablet (500 mg total) by mouth 2 (two) times a day with meals. Take with meals or food to reduce stomach upset. 10 tablet 05/04/2025 5 Active Active Problems No known active problems Encounters Date Type Department Care Team Description 05/04/2025 5:16 PM EST Hospital Encounter [facility] [address] [place] [phone] Right wrist pain 05/04/2025 4:55 PM EST Office Visit [facility] [address] [phone] Femi Colbert MD Duncan, Kiersten B, APRN Right wrist pain (Primary Dx); Swelling of right wrist from Last 3 Months Social History Tobacco Use Types Packs/Day Years Used Date Smoking Tobacco: Never Assessed Sex and Gender Information Value Date Recorded Sex Assigned at Not on file Legal Sex Male 1:54 PM EDT Gender Identity Not on file Sexual Orientation Not on file Last Filed Vital Signs [...] - - Body Mass Index - - Plan of Treatment Health Maintenance Due Date Last Done Comments Hepatitis C Virus Screening 1985 HIV Screening 1998 DTaP/Tdap/Td Vaccines (1 - Tdap) 2004 Hepatitis B Vaccines (1 of 3 - 19+ 3-dose series) 2004 Influenza Vaccine 01/03/2025 05/10/2018 COVID-19 Vaccine (2 - 2024-2 6 season) 2025 12/26/2020 HPV Vaccines (No Doses Required) Completed Pneumococcal Vaccine: Pediat michael (0-5 Years) and At-Risk Patients (6 to 49 Years) Aged Out No longer eligible b ased on patient's age to complete this topic Procedures Procedure Name Priority Date/Time Associated Diagnosis Comments XR WRIST 3+ VIEWS-RIGHT STAT 05/05/2025 7:18 AM EST Right wrist pain from Last 3 Months Results * XR Wrist 3+ views-Right (05/05/2025 7:18 AM EST) Anatomical Region Laterality Modality Wrist Right Computed Radiogr aphy 05/05/2025 7:18 AM EST Impressions 05/05/2025 7:20 AM EST THERE IS A BONE FRAGMENT of THE FOVEA OF THE DISTAL ULNA WHICH MAY REFLECT DISPLACED STYLOID PROCESS FRACTURE OF UNCERTAIN ACUITY. A Significant finding has been communicated to Radiology Special Officer Automat for provider notification via the [employer] Application on 05/05/2025 7:19 AM, Message ID [id number]. Narrative 05/05/2025 7:20 AM EST EXAM: XR [...] Significant finding has been communicated to Radiology Special Officer Automat forprovider notification via the [employer] Actionable FindingsApplication on 05/05/2025 7:19 AM, Message ID [id number]. Jane Donohue APRN [facility] DIAGNOSTIC IMAGING OR DERABLES Final Result from Last 3 Months Insurance Care Teams County Administrator Relationship Specialty Start Date End Date Pcp, No PCP - General General Medicine 05/04/25
--- OUTSIDE RECORDS SUMMARY | 2025-05-06 03:12 | XMS_ITS | Clinical Summary ---
Author Organization [facility] Address [address] [place] [address] Phone Care Team Providers Care Business Partner Name Role Phone Sandra Roy PA-C Primary Care Provider + Allergies No known active allergies Medications amLODIPine (NORVASC) 10 MG tablet Take 10 mg by mouth in the morning. 05/09/2022 Active chlorthalidone 25 MG tablet Take 25 mg by mouth in the morning. 05/09/2022 Active lisinopril 40 MG tablet Take 40 mg by mouth in the morning. 05/09/2022 Active hydrALAZINE 50 MG tablet Take 1 tablet (50 mg total) by mouth in the morning and 1 tablet (50 mg total) in the evening and 1 tablet (50 mg total) before bedtime. 270 tablet 3 02/28/2025 Active Active Problems Problem Noted Date Diagnosed Date Prediabetes 01/22/2025 Vitamin D deficiency 01/22/2025 Obstructive sleep apnea syndrome 12/20/2019 Essential hypertension 05/10/2018 Overview (01/22/2025): DX:Hypertension Encounters Date Type Department Care Team Description 02/28/2025 8:30 AM EDT Office Visit [facility] [address] [address] [place] [address] Terrance Tejada MD Hypertension (Primary Dx); Obstructive sleep apnea syndrome 02/07/2025 Orders Only [facility] [address] [address] Terrance Tejada MD from Last 3 Months Immunizations Immunization Administration Dates Next Due Influenza, Quadrivalent, With Preservative 05/10 Pfizer SARS-COV-2 12/26/2020 Tdap 05/10/2012 Family History Medical History Relation Comments Hypertension Father Hypertension Mother Relation Status Comments Father Alive Mother Alive Social History Tobacco Use Types Packs/Day Years Used Date Smoking Tobacco: Never Smokeless Tobacco: Never Tobacco Cessation:Counseling Given: Yes Alcohol Use Standard Drinks/Week Comments Never 0 (1 standard drink = 0.6 oz pur e alcohol) Sex and Gender Information Value Date Recorded Sex Assigned at Not on file Legal Sex Male 11:08 AM EDT Gender Identity Not on file Sexual Orientation Not on file Last Filed Vital Signs Vital Sign Reading Time Taken Comments Blood Pressure 145/83 02/28/2025 8:40 AM EDT Pulse 83 02/28/2025 8:40 AM EDT Temperature - - Respiratory Rate - - Oxygen Saturation 98% 01/22/2025 8:19 AM EDT Inhaled Oxygen Concentration - - Weight 181 kg (398 lb 12.8 oz) 01/22/2025 8:19 A M EDT Height - - Body Mass Index - - Plan of Treatment Upcoming Encounters Date Type Department Care Team (Late st Contact Info) Description 06/30/2025 8:30 AM EST Office Visit [facility] [address] [address] Evonne Ferrari ARNP [address] [address] Health Maintenance Due Date Last Done Comments Hepatitis B Vaccine (1 of 3 - 19+ 3-dose series) 05/25 Pneumococcal Vaccine: Peds ( 0 to 5 Years) and At-Risk Patients (6 to 49 Years) (1 of 2 - PCV) 2004 Influenza Vaccine (#1) 2025 05/10/2018 Procedures Procedure Name Priority Date/Time Associated Diagnosis Comments 24 HOUR BLOOD PRESSURE MONITOR Routine 02/25/2025 8:22 AM EDT Other proteinuria Hypertension Obstructive sleep apnea syndrome HEP C ANTIBODY #2 - HC Routine 02/07/2025 7:49 AM EDT HEPATITIS B SURFACE ANTIGEN W/REFL CONFIRM Routine 02/07/2025 7:49 AM EDT URINALYSIS RFX MICROSCOPIC Routine 02/07/2025 7:49 AM EDT C3 COMPLEMENT Routine 02/07/2025 7:49 AM EDT Other proteinuria C4 COMPLEMENT Routine 02/07/2025 7:49 AM EDT Other proteinuria PROTEIN / CREATININE RATIO, URINE Routine 02/07/2025 7:49 AM EDT Other proteinuria from Last 3 Months Results * Initiate ABPM Monitoring (02/25/2025 8:22 AM EDT) Anatomical Region Laterality Modality Other Terrance Tejada MD [facility] PROCEDURES F inal Result * Hep C Antibody (02/07/2025 7:49 AM EDT) Hep C Ab Negative Negative [facility] 02/07/2025 7:49 AM EDT 02/07/2025 10:06 AM EDT Terrance Tejada MD LAB BLOOD ORDERABLES Final Resul t [facility] [address] [place] [address] * Hepatitis B Surface Ag w/Reflex Confirmation (02/07/2025 7:49 AM EDT) Hep B Surface Ag Negative Negative [facility] 02/07/2025 7:49 AM EDT 02/07/2025 10:06 AM EDT Narrative BARTO - 02/07/2025 11:29 AM EDT Over the counter supplements containing high doses of biotin may interfere with this assay. If interference is suspected, patients shoud be retested after refraining from biotin supplements for 72 hours. us Terrance Tejada MD LAB BLOOD ORDERABLES Final Resul t Performing Organization Address [facility] Co de Phone Number [facility] [address] [place] [address] * Protein / creatinine ratio, urine (02/07/2025 7:49 AM EDT) Protein, Ur 12 mg/dL [facility] Urine Protein/Creati nine Ratio 0.13 <=0.20 mg/mg creat [facility] Creatinine, Urine 90.0 mg/dL [facility] Urine Urine specimen obtained by clean catch procedure / Unknown 02/07/2025 7:49 AM EDT 02/07/2025 10:07 AM EDT us Terrance Tejada MD LAB URINE ORDERABLES Final Resul t Performing Organization Address [facility] de Phone Number [facility] [address] [place] [address] * Urinalysis Reflex Microscopic (02/07/2025 7:49 AM EDT) Specific [place] 1.020 1.003 - 1.030 [facility] pH Urine 6.0 5.0 - 8.0 pH [facility] LEUKOCYTES, URINE Negative Negative [facility] Nitrite, Urine Negative Negative [facility] Protein, Urine Negative <=Trace mg/dL [facility] Glucose Urine Negative Negative mg/dL [facility] Ketones, Urine Negative Negative mg/dL [facility] Urobilinogen Urine 1.0 0.2 - 1.0 mg/dL [facility] Bilirubin Urine Negative Negative [facility] Blood Urine Negative Negative [facility] 02/07/2025 7:49 AM EDT 02/07/2025 10:07 AM EDT Narrative YOSELIN - 02/07/2025 10:17 AM EDT Microscopic Required->Yes Culture if Indicated?->Yes us Terrance Tejada MD LAB URINE ORDERABLES Final Resul t Performing Organization Address City/[facility]/ZIP Co de Phone Number [facility] [address] [place] [address] * C3 Complement (02/07/2025 7:49 AM EDT) C3 Complement 137 88 - 201 mg/dL [facility] Blood Venous blood / Unknown 02/07/2025 7:49 AM EDT 02/07/2025 10:06 AM EDT us Terrance Tejada MD LAB BLOOD ORDERABLES Final Resul t Performing Organization Address [facility] Co de Phone Number [facility] [address] [place] [address] * C4 Complement (02/07/2025 7:49 AM EDT) C4 Complement 23 16 - 47 mg/dL [facility] Blood Venous blood / Unknown 02/07/2025 7:49 AM EDT 02/07/2025 10:06 AM EDT us Terrance Tejada MD LAB BLOOD ORDERABLES Final Resul t Performing Organization Address City/[facility]/ZIP Co de Phone Number [facility] [address] [place] [address] from Last 3 Months Insurance [facility] Care Teams Business Partner Relationship Specialty Start Date End Date Sandra Roy PA-C [address] [address] PCP - General Physician Hospital Pharmacist 11/12/24
--- OUTSIDE RECORDS SUMMARY | 2025-05-06 03:12 | XMS_ITS | Encounter Summary ---
Author Organization [facility] Address [address] [place] [address] Care Team Providers Care Color Separation Photographer Name Role Phone Joanna Guajardo APRN Primary Care Provider Encounter Details Date Type Department Care Team (Late st Contact Info) Description 2020 Orders Only [facility] Department of Pulmonology [address] [place] [address] Ez Barker MD Social History Tobacco Use Types Packs/Day Years Used Date Smoking Tobacco: Never Smokeless Tobacco: Never Alcohol Use Standard Drinks/Week Comments Yes 0 (1 standard drink = 0.6 oz pur e alcohol) once every 3 months Sex and Gender Information Value Date Recorded Sex Assigned at Not on file Legal Sex Male 4:16 PM EDT Gender Identity Not on file Sexual Orientation Not on file documented as of this encounter Plan of Treatment Not on file documented as of this encounter Visit Diagnoses Not on filedocumented in this encounter Care Teams Color Separation Photographer Relationship Specialty Start Date End Date Joanna Guajardo APRN [address] [place] [address] PCP - General Family Medicine 05/10/18 11/19/21 documented as of this encounter
--- OUTSIDE RECORDS SUMMARY | 2025-05-06 03:12 | XMS_ITS | Encounter Summary ---
Author Organization [facility] Address [address] [place] [address] Care Team Providers Care Director Religious Education Name Role Phone Joanna Guajardo APRN Primary Care Provider Encounter Details Date Type Department Care Team (Late st Contact Info) Description 04/16/2021 Orders Only [facility] Department of Pulmonology [address] [place] [address] Cirilo Fleming MD Social History Tobacco Use Types Packs/Day [...] on filedocumented in this encounter Care Teams Director Religious Education Relationship Specialty Start Date End Date Joanna Guajardo APRN [address] [place] [address] PCP - General Family Medicine 05/10/18 11/19/21 documented as of this encounter
--- OUTSIDE RECORDS SUMMARY | 2025-05-06 03:12 | XMS_ITS | Clinical Summary ---
Demographics Address [address] [place] [address] Mobile Phone Home Phone Email Address Preferred Language Egyptian Marital Status Single Anabaptist Affiliation Unknown Race Other Race Ethnic Group or Author Organization [facility] Address [address] [place] [address] Care Team Providers Care Power Plant Operators Supervisor Name Role Phone Unavailable Primary Care Provider Unavailabl e Allergies No known active allergies Medications famotidine (PEPCID) tablet TAKE 1 TABLET (20 MG TOTAL) BY MOUTH 2 (TWO) TIMES A DAY NEEDED FOR HEARTBURN. (NOT COVERED) 180 tablet 2 0 Active lisinopriL (PRINIVIL) 40 mg tablet Take 1 tablet (40 mg total) by mouth in the morning. 90 tablet 1 2 Active chlorthalidone (HYGROTON) 25 mg tabletIndications :Essential hypertension Take 0.5 tablets (12.5 mg total) by mouth in the morning. 45 tablet 3 2 Active amLODIPine (NORVASC) 10 mg tabletIndications :Essential hypertension Take 1 tablet (10 mg total) by mouth in the morning. 90 tablet 3 2 Active Active Problems Problem Noted Date Diagnosed Date NAV (obstructive sleep apnea) 12/20/2019 Transaminitis 05/24/2018 Morbid obesity with BMI of 45.0-49.9, adult 0 11/2017 Essential hypertension 05/10/2018 Immunizations Immunization Administration Dates Next Due COVID-19 mRNA (PFIZER) 12/26/2020 Influenza, Quadrivalent 05/10/2018 Tdap 05/10/2012 Family History Medical History Relation Comments Hypertension Father Hypertension Mother Breast cancer Paternal Grandmother Drug abuse Paternal Grandmother Heart disease Paternal Grandmother Hypertension Paternal Grandmother Relation Status Comments Brother 1 Alive Brother 2 Alive Daughter 1 Alive Daughter 2 Alive Father Alive Maternal Grandfather Maternal Grandmother Mother Alive Paternal Grandfather Paternal Grandmother Alive Sister Alive Son 1 Alive Son 2 Alive Social History Tobacco Use Types Packs/Day [...] Sign Reading Time Taken Comments Blood Pressure 141/97 04/23/2019 11:17 AM EST Pulse 83 04/23/2019 11:17 AM EST Temperature 36.3 C (97.4 F) 04/23/2019 11:17 AM EST Respiratory Rate 20 04/23/2019 11:17 AM EST Oxygen Saturation 95% 04/23/2019 11:17 AM EST Inhaled Oxygen Concentration - - Weight 163 kg (358 lb 14.4 oz) 09/27/2018 1:22 P M EDT Height 185.4 cm (6' 1 ) 09/27/2018 1:22 PM EDT Body Mass Index 47.35 09/27/2018 1:22 PM EDT Plan of Treatment Health Maintenance Due Date Last Done Comments HIV Screening 1985 Hepatitis B Vaccines (1 of 3 - 19+ 3-dose series) 2004 HPV Vaccines (1 - 3-dose SCD M series) 2012 DTaP,Tdap,and Td Vaccines (2 - Td or Tdap) 05/10/2022 05/10/2012 COVID-19 Vaccine (2 - 2024-2 6 season) 2025 12/26/2020 Influenza Vaccine (#1) 2025 05/10/2018 Zoster Vaccines (1 of 2) 2035 Hepatitis A Vaccines Aged Out No long er eligible based on patient's age to complete this topic MMR Vaccines Aged Out No longer eligi ble based on patient's age to complete this topic Meningococcal Vaccine Aged Out No sina reece eligible based on patient's age to complete this topic Pneumococcal Vaccine: At-Ris k and Pediatric Patients (0 to 49 Years) Aged Out No lo nger eligible based on patient's age to complete this topic Insurance [employer] [place] [employer] [id number] [place] - OUT OF STATE
[2025-05-06 03:41] VITALS: BP 173/94; PULSE 90; RESP 20; TEMP 36.7; O2SAT 95
== END 2025-05-06 03:41 | disposition home or self-care (01) ==
PROVIDERS: Emergency Provider Emergency Medicine; PCP Physician Assistant
DX: M25.531 Pain in right wrist (principal); R60.0 Localized edema; I10 Essential (primary) hypertension
CPT/HCPCS: 73110; 99283

== ENCOUNTER → 2025-05-06 02:16 | Outpatient (BNV) | payer BC, SELFPAY | PROVIDERS: Emergency Provider Emergency Medicine; PCP Physician Assistant; Visit Provider Radiology Diagnostic Radiology | DX: S62.101A Fracture of unspecified carpal bone, right wrist, initial encounter for closed fracture (principal) | CPT/HCPCS: 73110 ==